=== PATIENT | female | born 1945 | race Caucasian/White ===

== ENCOUNTER 2018-02-22 18:13 | Emergency (ER) | payer MEDICARE, BC ==
[2018-02-22 18:54] LABS: ABS Basophils 0 10^3/ul (0-0.2); ABS Eosinophils 0.2 10^3/ul (0-0.6); ABS Lymphocytes 2.2 10^3/ul (1.0-4.8); ABS Monocytes 0.5 10^3/ul (0-0.8); ABS Nucleated RBC 0 10^3/ul; Eosinophil % 2.2 % (0-6); Hematocrit 38 % (35-47); Hemoglobin 13.1 g/dl (12.0-16.0); Lymphocyte % 27.9 % (25-47); Mean Corpuscular HGB Conc 35 g/dl (31-36); Mean Corpuscular Hemoglobin 30 pg (27-31); Mean Corpuscular Volume 87 fL (80-97); Mean Platelet Volume 7.1 um3 (7.4-10.4); Nucleated Red Blood Cells % 0.1; Platelet Count 298 10^3/ul (150-450); Red Cell Distribution Width 14 % (10.5-15)
[2018-02-22 19:08] LABS: INR 0.92 (0.77-1.02)
[2018-02-22 19:14] LABS: EGFR Non-African American 55.6 (>60)
--- NOTE | 2018-02-22 19:59 | RAD ---
Indication: Right leg edema. Duplex Doppler sonography of the deep venous system of the right lower extremity deep venous system was performed. Bilaterally the common femoral veins appear patent and compressible. Right proximal greater saphenous vein, proximal deep femoral vein, femoral vein, popliteal vein, posterior tibial veins and peroneal veins appear patent and compressible. IMPRESSION: NO EVIDENCE OF DEEP VENOUS THROMBOSIS IS IDENTIFIED.
[2018-02-22] MEDS ORDERED: Potassium Chlor TAB* 20 MEQ TAB.ER PO ONE (20:03)
[2018-02-22 20:09] VITALS: BP 159/72
--- NOTE | 2018-02-22 20:20 | ED ---
Liz Rey SooYoung, scribed for Carleen Marques MD on 02/22/18 at 1822 . Lower Extremity - HPI Summary HPI Summary: A 72 y/o F presents to ED referred from [address] [place] [address] with c/o RLE edema onset a few days ago. Associated sx: R calf and knee tightness that lasts intermittently. Denies CP, SOB. Pt drove from [place] via car approx 3 weeks ago. Recently, pt has been doing a lot of sitting due to her being ill. PMHx : HTN but stopped taking her medication which was OK with her PCP. Pt had an echo in [place] this year and everything was nml. No PMHx: CHF, cardiac hx. No daily medications. Allergies noted. Receives Prolia shot for osteoporosis every 6 months. - History of Current Complaint Chief Complaint: EDExtremityLower Stated Complaint: RT LEG SWELLING Time Seen by Provider: 02/22/18 18:20 Hx Obtained From: Patient, Family/Ms Sql Developer - present Mechanism Of Injury: Other - no known injury Onset of Pain: Days, Prior to Arrival Onset/Duration: Days Severity Initially: Mild Severity Currently: Mild Pain Intensity: 0 Pain Scale Used: 0-10 Numeric Timing: Constant Location: Is Discrete @ - RLE Character Of Pain: Aching Associated Signs And Symptoms: Positive: Swelling, Knee Pain - "tightness". Negative: Other - neg: CP, SOB Aggravating Factor(s): Nothing Alleviating Factor(s): Nothing Able to Bear Weight: Yes Related History: Other - car travel from [place] 3 weeks ago - Allergies/Home Medications Allergies/Adverse Reactions: Allergies Allergy/AdvReac Type Severity Reaction Status Date / Time No Known Allergies Allergy Verified 02/22/18 19:07 Home Medications: Home Medications Denosumab(NF) [Prolia(NF)] 60 mg SUBCUT Q6M 02/22/18 [History Confirmed 02/22/18 ] PMH/Surg Hx/FS Hx/Imm Hx Previously Healthy: No Endocrine/Hematology History: Reports: Other Endocrine/Hematological Disorders - osteoporosis Cardiovascular History: Reports: Hx Hypertension Denies: Hx Congestive Heart Failure, Hx Myocardial Infarction Opthamlomology History: Denies: Hx Legally Blind - Surgical History Surgery Procedure, Year, and Place: Breast biopsies Infectious Disease History: No Infectious Disease History: Denies: Traveled Outside the [place] in Last 30 Days - Family History Known Family History: Positive: Cardiac Disease - mother and sister - pacemaker Negative: Other - neg: DVT - Social History Occupation: Retired Lives: With Family Alcohol Use: None Hx Substance Use: No Hx Tobacco Use: No Smoking Status (MU): Never Smoked Tobacco Review of Systems Negative: Fever Negative: Chest Pain Negative: Shortness Of Breath Gastrointestinal: Negative Positive: Edema - RLE, Other - R calf and R knee "tightness" Skin: Negative Neurological: Negative Psychological: Normal All Other Systems Reviewed And Are Negative: Yes Physical Exam - Summary Physical Exam Summary: Appearance: Well-appearing, minimal pain distress, well-nourished Skin: Warm, color reflects adequate perfusion, dry, no redness of RLE Head: Normal Head/Face inspection, atraumatic Eyes: Conjunctiva clear ENT: Normal inspection Neck: Supple, no nodes, no JVD Respiratory: Lungs clear, normal breath sounds, no respiratory distress Cardio: RRR, No murmur, pulses normal, brisk capillary refill Abdomen: Soft, nontender Bowel sounds: Present Musculoskeletal: Strength Intact/ROM intact, R calf tenderness, RLE swelling. Psychological: Normal Neuro: Alert, muscle tone normal, no focal deficit Triage Information Reviewed: Yes Vital Signs On Initial Exam: Initial Vitals Temp Pulse Resp BP Pulse Ox 99.0 F 79 18 189/80 96 02/22/18 18:14 02/22/18 18:14 02/22/18 18:14 02/22/18 18:14 02/22/18 18:14 Vital Signs Reviewed: Yes Diagnostics - Vital Signs Vital Signs Temp Pulse Resp BP Pulse Ox 02/22/18 18:14 99.0 F 79 18 189/80 96 - Laboratory Lab Results: Lab Results 02/22/18 02/22/18 02/22/18 Range/Units 18:41 18:41 18:41 WBC 8.0 (3.5-10.8) 10^3/ul RBC 4.40 (4.00-5.40) 10^6/ul Hgb 13.1 (12.0-16.0) g/dl Hct 38 (35-47) % MCV 87 (80-97) fL MCH 30 (27-31) pg MCHC 35 (31-36) g/dl RDW 14 (10.5-15) % Plt Count 298 (150-450) 10^3/ul MPV 7.1 L (7.4-10.4) um3 Neut % (Auto) 63.2 (38-83) % Lymph % (Auto) 27.9 (25-47) % Rice % (Auto) 6.1 (0-7) % Eos % (Auto) 2.2 (0-6) % Baso % (Auto) 0.6 (0-2) % Absolute Neuts (auto) 5.0 (1.5-7.7) 10^3/ul Absolute Lymphs (auto) 2.2 (1.0-4.8) 10^3/ul Absolute Monos (auto) 0.5 (0-0.8) 10^3/ul Absolute Eos (auto) 0.2 (0-0.6) 10^3/ul Absolute Basos (auto) 0 (0-0.2) 10^3/ul Absolute Nucleated RBC 0 10^3/ul Nucleated RBC % 0.1 INR (Anticoag Therapy) 0.92 (0.77-1.02) Sodium 144 (135-145) mmol/L Potassium 3.0 L (3.5-5.0) mmol/L Chloride 102 (101-111) mmol/L Carbon Dioxide 32 (22-32) mmol/L Anion Gap 10 (2-11) mmol/L BUN 17 (6-24) mg/dL Creatinine 0.98 H (0.51-0.95) mg/dL Est GFR ( Amer) 67.3 (>60) Est GFR (Non-Af Amer) 55.6 (>60) BUN/Creatinine Ratio 17.3 (8-20) Glucose 102 H (70-100) mg/dL Lactic Acid (0.5-2.0) mmol/L Calcium 9.5 (8.6-10.3) mg/dL Total Bilirubin 0.60 (0.2-1.0) mg/dL AST 39 (13-39) U/L ALT 102 H (7-52) U/L Alkaline Phosphatase 79 (34-104) U/L C-Reactive Protein 9.74 H (<8.01) mg/L B-Natriuretic Peptide ( - 100) pg/mL Total Protein 7.2 (6.4-8.9) g/dL Albumin 4.3 (3.2-5.2) g/dL Globulin 2.9 (2-4) g/dL Albumin/Globulin Ratio 1.5 (1-3) 02/22/18 02/22/18 Range/Units 18:41 18:43 WBC (3.5-10.8) 10^3/ul RBC (4.00-5.40) 10^6/ul Hgb (12.0-16.0) g/dl Hct (35-47) % MCV (80-97) fL MCH (27-31) pg MCHC (31-36) g/dl RDW (10.5-15) % Plt Count (150-450) 10^3/ul MPV (7.4-10.4) um3 Neut % (Auto) (38-83) % Lymph % (Auto) (25-47) % Rice % (Auto) (0-7) % Eos % (Auto) (0-6) % Baso % (Auto) (0-2) % Absolute Neuts (auto) (1.5-7.7) 10^3/ul Absolute Lymphs (auto) (1.0-4.8) 10^3/ul Absolute Monos (auto) (0-0.8) 10^3/ul Absolute Eos (auto) (0-0.6) 10^3/ul Absolute Basos (auto) (0-0.2) 10^3/ul Absolute Nucleated RBC 10^3/ul Nucleated RBC % INR (Anticoag Therapy) (0.77-1.02) Sodium (135-145) mmol/L Potassium (3.5-5.0) mmol/L Chloride (101-111) mmol/L Carbon Dioxide (22-32) mmol/L Anion Gap (2-11) mmol/L BUN (6-24) mg/dL Creatinine (0.51-0.95) mg/dL Est GFR ( Amer) (>60) Est GFR (Non-Af Amer) (>60) BUN/Creatinine Ratio (8-20) Glucose (70-100) mg/dL Lactic Acid 0.9 (0.5-2.0) mmol/L Calcium (8.6-10.3) mg/dL Total Bilirubin (0.2-1.0) mg/dL AST (13-39) U/L ALT (7-52) U/L Alkaline Phosphatase (34-104) U/L C-Reactive Protein (<8.01) mg/L B-Natriuretic Peptide 132 H ( - 100) pg/mL Total Protein (6.4-8.9) g/dL Albumin (3.2-5.2) g/dL Globulin (2-4) g/dL Albumin/Globulin Ratio (1-3) Result Diagrams: 02/22/18 18:41 02/22/18 18:41 Lab Statement: Any lab studies that have been ordered have been reviewed, and results considered in the medical decision making process. Re-Evaluation - Re-Evaluation First Eval Re-Evaluation Time: 20:25 Change: Unchanged Comment: discussed hypokalemia and US results and discharge plans. Pt and agreeable. Lower Extremity Course/Dx - Course Course Of Treatment: Pt with hx right leg pain and swelling after travel from [place] by car 3 weeks ago. No CP or SOB and no hx DVT or PE. Venous doppler shows no DVT. Labs show hypokalemia. Pt given KCL 40mEq po x 1, and will be given RX for 5 days KCL. Pt also with mild elevation creatinine and ALT. Pt advised of these abnormalities. Pt advised to have definite F/U with her PCP when she returns to [place] on 03/01/18. Allergies noted. Medications reviewd. Elevated blood pressure noted. - Diagnoses Differential Diagnosis/HQI/PQRI: Positive: Arthritis, Cellulitis, DVT, Gout, Infection, Phlebitis, Sprain, Strain, Other - CHF Provider Diagnoses: Poor high blood pressure control, Pain of right knee and lower leg, Hypokalemia , Elevated ALT measurement Discharge - Sign-Out/Discharge Documenting (check all that apply): Discharge/Admit/Transfer - Discharge Plan Condition: Stable Disposition: HOME Prescriptions: Potassium Chlor TAB* [Potassium Chlor TAB 20 MEQ*] 40 meq PO DAILY #5 tab.er Patient Education Materials: Hypokalemia (ED), Leg Pain (ED) Referrals: Eris Garcia [Medical Doctor] - 3 Days Additional Instructions: The ultrasound did not show a clot (DVT-deep venous thrombosis) in your right leg. Keep your leg elevated. You may take acetaminophen for pain. You did have low potassium 3.0, and were given one dose of oral potassium in the ER, and Dr. Marques prescribed 5 days of potassium. Your ALT liver enzyme was also elevated, and your creatinine was slightly elevated. We have given you a copy of your lab results and the ultrasound. You should follow up with your doctor when you return to [place] within 3-5 days. Return to the ER if you have any new or worsening symptoms. - Billing Disposition and Condition Condition: STABLE Disposition: Home The documentation as recorded by the Liz cloud SooYoung accurately reflects the service I personally performed and the decisions made by me, Carleen Maqrues MD.
--- NOTE | 2018-02-22 20:30 | ED ---
I, Olamide Lester, scribed for Jia Jarquin MD on 02/22/18 at 2021 . Progress - Progress Note Progress Note: This patient was signed out from Dr. Marques, awaiting venous doppler study, pending disposition. Venous doppler study, per radiologist, shows NO EVIDENCE OF DEEP VENOUS THROMBOSIS IS IDENTIFIED. ED physician has reviewed this report. Course/Dx - Course Course Of Treatment: Venous doppler study shows that patient does not have DVT per radiologist. Patient discharged home by Dr. Marques. - Diagnoses Provider Diagnoses: Poor high blood pressure control, Pain of right knee and lower leg, Hypokalemia , Elevated ALT measurement Discharge - Sign-Out/Discharge Documenting (check all that apply): Discharge/Admit/Transfer - Discharge - Discharge Plan Condition: Stable Disposition: HOME Patient Education Materials: Hypokalemia (ED), Leg Pain (ED) Referrals: Eris Garcia [Medical Doctor] - Additional Instructions: The ultrasound did not show a clot (DVT-deep venous thrombosis) in your right leg. You did have low potassium 3.0, and were given one dose of oral potassium in the ER, and Dr. Marques prescribed 5 days of potassium. Your ALT liver enzyme was also elevated, and your creatinine was slightly elevated. We have given you a copy of your lab results and the ultrasound. You should follow up with your doctor when you return to [place] within 3-5 days. Return to the ER if you have any new or worsening symptoms. The documentation as recorded by the Trevon cloud Tiffany accurately reflects the service I personally performed and the decisions made by me, Jia Jarquin MD.
[2018-02-22 20:48] LABS: Urine Appearance Clear; Urine Blood Negative (Negative); Urine Color Yellow; Urine Ketones Trace (Negative); Urine Protein Negative (Negative); Urine Urobilinogen Negative (Negative)
== END 2018-02-22 21:08 | disposition home or self-care (01) ==
LOC: ED 18:13
DX: M25.561 Pain in right knee (principal); E87.6 Hypokalemia; R74.0 Nonspecific elevation of levels of transaminase and lactic acid dehydrogenase [LDH]; I10 Essential (primary) hypertension; R60.0 Localized edema
CPT/HCPCS: 36415; 80053; 81003; 81015; 83605; 83880; 85025; 85610; 86140; 87086; 99283; A9270-GY